=== PATIENT | male | born 1960 | race Caucasian/White ===

== ENCOUNTER 2021-09-04 09:54 | Day surgery (SDC) | payer BC ==
--- NOTE | 2021-09-04 09:10 | HP ---
DATE OF SURGERY: 09/04/2021 HISTORY OF PRESENT ILLNESS: The patient is a 60-year-old with no bloody stools, no change in bowel movements and no pain. Family history negative for colon cancer, negative for stomach or esophageal cancer. Anemia and hemoccult positive. He needs EGD and colonoscopy for further evaluation to evaluate for polyps, neoplasia, ulcer disease, gastritis or other etiology. PAST MEDICAL HISTORY: Hypertension, reflux, hypothyroidism. PAST SURGICAL HISTORY: Sinus surgery in the past. MEDICATIONS: Avapro, propranolol, Synthroid, omeprazole, vitamin B12 injection, tramadol, Toradol. ALLERGIES: IODINE. OCEAN FISH. FAMILY HISTORY: Negative for colon, esophagus or stomach cancer. SOCIAL HISTORY: No smoking or alcohol abuse. REVIEW OF SYSTEMS: Fourteen systems reviewed. No chest pain or palpitations. Other systems negative or noncontributory as above and per preadmission questionnaire. PHYSICAL EXAMINATION: GENERAL: No acute distress. HEENT: Sclerae nonicteric. NECK: No JVD. CHEST: Equal excursion, nonlabored breathing. CVS: Regular rate and rhythm. ABDOMEN: Soft. No peritoneal signs. EXTREMITIES: No significant edema. NEURO: Alert, oriented, moving extremities symmetrically. RECTAL: Deferred timed to endoscopy exam. PSYCH: Appropriate mood and affect. IMPRESSION: Anemia, hemoccult positive stool. He is in need of EGD and colonoscopy, will proceed as an outpatient. Risks of bleeding or infection, risk of bowel injury or perforation possibly requiring open procedure, risk of missed or nondiagnosis or incomplete exam possibly requiring barium enema, other studies or procedures. General risk of anesthesia or sedation. Risk of bowel prep but not limited to, consent obtained. Will proceed with EGD and colonoscopy as an outpatient.
[~2021-09-04 09:54] MED LIST: Lactated Ringers 1,000 ML IV SCH
[2021-09-04] MEDS ORDERED: Lactated Ringers 1,000 ML IV ONE (10:00)
[2021-09-04] MEDS ORDERED: Xylocaine-Mpf 2% 5 Ml Vial ONE (12:34)
[2021-09-04] MEDS ORDERED: DIPRIVAN 200 MG/20 ML IV ONE ×2 (12:34→12:57)
[2021-09-04] MEDS ORDERED: Versed 2 MG/2 ML Injection ONE (12:35)
[2021-09-04 14:16] VITALS: BP 137/77; PULSE 69; O2SAT 97
--- NOTE | 2021-09-05 09:59 | OP ---
SURGERY DATE/TIME: 09/04/2021 1237 PREOPERATIVE DIAGNOSES: 1) History of anemia. 2) History of hemoccult positive stool. 3) Need for upper and lower endoscopy. POSTOPERATIVE DIAGNOSES: 1) ASA Class II. 2) Mild to moderate gastritis. 3) Tiny, slight hiatal hernia. 4) Fair bowel prep. 5) Small early cecal polyp versus hyperplastic lesion. 6) Small diverticulitis throughout the colon. PROCEDURES: 1) EGD with cold biopsy of antrum to evaluate for Helicobacter pylori and for path. 2) Colonoscopy to cecum. 3) Hot biopsy polypectomy small, early cecal polyp versus hyperplastic lesion at the appendiceal orifice. SURGEON: Dr. Neto Avalos. ANESTHESIA: MAC. ESTIMATED BLOOD LOSS: Minimal. INDICATIONS: As noted above. Risks and benefits explained in detail and not limited to and consent obtained. DESCRIPTION OF PROCEDURE AND FINDINGS: The patient is taken to the operating room. MAC anesthesia introduced. After official time out and no disagreement with planned procedure, bite block positioned. Video gastroscope easily passed down the esophagus through the patent pylorus to the third portion of the duodenum. First, second and third portion of duodenum grossly unremarkable. No signs of any obvious ulcers or any signs of any active bleeding. The scope pulled back into antrum. He did have some streaking of some mild to moderate gastritis. Cold biopsy taken to evaluate for Helicobacter pylori. There were no signs of any ulcer. No signs of any tushar telangiectasia. On retroflex, there is a slight weakness of the hiatus, maybe a very tiny or slight hiatal hernia. The scope was straightened. Again, no signs of any obvious ulcers or masses in the stomach. Scope pulled back. Gastroesophageal junction about 40 cm. Z-line was crisp. Esophageal mucosa grossly unremarkable other than a little bit of gastritis there is no major source of any significant source of anemia. The scope is withdrawn. Patient tolerated the procedure well. Attention was then turned to colonoscopy. Digital rectal exam did not reveal any rectal masses. There were some small internal hemorrhoids. Video colonoscope inserted and passed up through the tortuous sigmoid, descending, transverse colon and ascending colon around to the cecum. Appendiceal orifice and valve well visualized and photo documented. Prep overall was fair. His ASA Class was II. The scope was carefully withdrawn over the next eight minutes. He had a few small diverticula scattered throughout the colon. There was a small polyp in the appendiceal orifice area about 2 mm in size removed with hot biopsy forceps. Whether this is early polyp versus hyperplastic lesion was removed. Good hemostasis noted. Otherwise the scope was slowly and carefully withdrawn over the next eight minutes checking the colon another few scattered diverticula and fair bowel prep with a little bit of liquidy stool. There were no signs of any large polyps, masses or obstructing lesions. He had minimal internal hemorrhoids. The scope is withdrawn. The patient tolerated the procedure well. There was no family available to discuss the findings with at this time. I will see him back in the office in the next week or two to discuss the results.
== END 2021-09-04 14:10 | disposition home or self-care (01) ==
LOC: SDC 09:54
PROVIDERS: ATTEND Surgery
DX: Z09 Encounter for follow-up examination after completed treatment for conditions other than malignant neoplasm (principal); Z86.2 Personal history of diseases of the blood and blood-forming organs and certain disorders involving the immune mechanism; R19.5 Other fecal abnormalities; K29.70 Gastritis, unspecified, without bleeding; K44.9 Diaphragmatic hernia without obstruction or gangrene; K63.5 Polyp of colon; K57.92 Diverticulitis of intestine, part unspecified, without perforation or abscess without bleeding; K64.8 Other hemorrhoids
CPT/HCPCS: J2250; J2704

== ENCOUNTER 2024-08-31 08:30 | Day surgery (SDC) | payer MEDICARE, BC ==
--- NOTE | 2024-08-31 07:21 | HP ---
HISTORY AND PHYSICAL HISTORY OF PRESENT ILLNESS: Patient had positive FIT test. No gross bloody stools. Last colonoscopy was 5 years ago. No bloody stools. No change in bowel habits. No new pain. Family history negative for colon cancer. PAST MEDICAL HISTORY: Hypertension, reflux, BPH, headaches, hypothyroidism. HOME MEDICATIONS: Tamsulosin, propranolol, omeprazole, hydrocodone, levothyroxine, Emgality, vitamin D3. ALLERGIES: Iodine. PAST SURGICAL HISTORY: Had sinus surgery in the past, had colonoscopy in the past. SOCIAL HISTORY: No smoking or alcohol abuse. FAMILY HISTORY: History of [place]. REVIEW OF SYSTEMS: Twelve systems reviewed. No chest pain or palpitations. Other systems negative or noncontributory as above and per preadmission questionnaire. PHYSICAL EXAMINATION: GENERAL: Height 5 feet 8 inches. BMI 33.45. No acute distress. HEENT: Sclerae anicteric. Extraocular movements are intact. NECK: No JVD. CARDIOVASCULAR: Regular rate and rhythm. RESPIRATORY: Equal excursion. Nonlabored breathing. ABDOMEN: Soft, nontender. SKIN: Dry. EXTREMITIES: No cyanosis or edema. NEUROLOGIC: Alert and oriented. Moving all extremities symmetrically. PSYCHIATRIC: Appropriate mood and affect. RECTAL: Deferred until time of endoscopy. IMPRESSION: Positive FIT test. Needs colonoscopy. Shown the risk sheet, explained the procedure in detail, not limited to bleeding, infection, risk of bowel injury or perforation possibly requiring open procedure, risk of missed or nondiagnosis or incomplete exam possibly requiring other procedure or referral, risk of anesthesia or sedation, risk of bowel prep but not limited to. Will proceed with outpatient colonoscopy under MAC anesthesia. Otherwise, continue medications for BPH, reflux, thyroid, headaches, and hypertension.
[2024-08-31] MEDS: Lactated Ringers 1,000 ML IV SCH (08:31)
[2024-08-31] MEDS ORDERED: Xylocaine-Mpf 2% 5 Ml Vial ONE (10:32)
[2024-08-31] MEDS ORDERED: propofoL IV ONE (10:33)
[2024-08-31] MEDS ORDERED: ROBINUL ONE (10:39)
[2024-08-31] MEDS ORDERED: Ephedrine Sulfate 50 MG/ML ONE (10:43)
[2024-08-31 11:25] VITALS: O2SAT 96
[2024-08-31 11:39] VITALS: BP 129/85; PULSE 57; RESP 18; TEMP 97.1
--- NOTE | 2024-09-01 09:54 | OP ---
SURGERY DATE/TIME: 08/31/2024 [id number] PREOPERATIVE DIAGNOSES: 1) History of positive fecal immunochemical test (FIT). 2) Need for colonoscopy. POSTOPERATIVE DIAGNOSES: 1) Transverse colon polyp. 2) Diverticulosis. 3) Fair bowel prep. 4) ASA class 2. 5) Withdrawal time approximately 8 minutes. PROCEDURES: 1) Colonoscopy to cecum. 2) Hot biopsy piecemeal polypectomy transverse colon polyp. SURGEON: Alex Avalos MD ANESTHESIA: MAC. ESTIMATED BLOOD LOSS: Minimal. INDICATIONS: Consent was obtained. DESCRIPTION OF PROCEDURE AND FINDINGS: The patient was taken to the endoscopy room. MAC anesthesia was induced. After official time-out and no disagreement with planned procedure, digital rectal exam did not reveal any rectal masses or any polyps. Videocolonoscope was inserted and passed up through the slightly tortuous sigmoid, descending, transverse, ascending colon around to the cecum. With external pressure, I was able to reach the cecum and ileocecal valve. Appendiceal orifice and ileocecal valve photo documented. Prep overall was fair. A little bit of liquidy, semi-solid stool throughout the colon that was suctioned and irrigated clear, just slightly limiting the exam for small lesions. The scope was carefully withdrawn over the next 8 minutes. There was a 3 mm polyp in the transverse colon. It was removed with hot biopsy polypectomy in piecemeal fashion. Otherwise, he had some diverticulosis in the left colon. There were no signs of any large polyps, masses, or obstructing lesions. The patient tolerated the procedure well. Findings discussed with his out in the waiting area.
== END 2024-08-31 11:46 | disposition home or self-care (01) ==
LOC: SDC 08:30
PROVIDERS: ATTEND Surgery
DX: D12.3 Benign neoplasm of transverse colon (principal); R19.5 Other fecal abnormalities; K57.30 Diverticulosis of large intestine without perforation or abscess without bleeding
CPT/HCPCS: J2704

== ENCOUNTER 2025-04-13 05:54 | Day surgery (SDC) | payer MEDICARE, BC ==
[2025-04-13] MEDS ORDERED: NEURONTIN ONE (06:11)
[2025-04-13] MEDS ORDERED: TYLENOL EXTRA STRENGTH 500 MG ONE (06:11)
[2025-04-13] MEDS ORDERED: celeBREX 100 MG ONE (06:11)
[2025-04-13] MEDS ORDERED: Decadron 4 MG ONE (06:11)
[2025-04-13] MEDS ORDERED: Lactated Ringers 1,000 ML IV ONE (06:11)
[2025-04-13] MEDS ORDERED: CEFAZOLIN SODIUM ONE (06:15)
[2025-04-13] MEDS: celeBREX 100 MG PO ONE (06:21)
[2025-04-13] MEDS: NEURONTIN PO ONE (06:21)
[2025-04-13] MEDS: Decadron 4 MG PO ONE (06:21)
[2025-04-13] MEDS: TYLENOL EXTRA STRENGTH 500 MG PO ONE (06:21)
[2025-04-13 06:38] LABS: Hematocrit 39.4 % (40.1-51.0); Hemoglobin 13.0 g/dL (13.7-17.5); Mean Corpuscular Hemoglobin 29.5 pg (25.7-32.2); Mean Corpuscular Hgb Concent. 33.0 g/dL (32.3-36.5); Platelet Count 265 x10^3/uL (163-337); Red Blood Count 4.41 x10^6/uL (4.63-6.08); White Blood Count 6.7 x10^3/uL (4.23-9.07)
[2025-04-13] MEDS: Lactated Ringers 1,000 ML IV SCH (06:39)
[2025-04-13 06:52] LABS: Calcium 9.6 mg/dL (8.4-10.2); Carbon Dioxide 26.0 mmol/L (22-30); Creatinine 1 0.93 mg/dL (0.66-1.25); EST GLOMERULAR FILTRATION RATE 90.6 ML/MIN; Glucose 101.0 mg/dL (74-106); Potassium 3.9 mmol/L (3.5-5.1); SGOT/AST 26.0 U/L (17-59); SGPT/ALT 21.0 U/L (0-50); Total Protein 7.9 g/dL (6.3-8.2)
[2025-04-13] MEDS ORDERED: EXPAREL 133 MG/10 ML VIAL IJ ONE (06:52)
[2025-04-13] MEDS ORDERED: Marcaine Mpf 0.5% Vial 30 Ml ONE (06:52)
[2025-04-13] MEDS ORDERED: SUBLIMAZE 100 MCG/2 ML ONE (06:59)
[2025-04-13] MEDS ORDERED: Versed 2 MG/2 ML Injection ONE (06:59)
[2025-04-13] MEDS ORDERED: propofoL IV ONE (06:59)
[2025-04-13] MEDS ORDERED: Xylocaine-Mpf 2% 5 Ml Vial ONE (07:00)
[2025-04-13] MEDS ORDERED: TORAdol 30 mg Injection ONE ×2 (07:01→10:12)
[2025-04-13] MEDS ORDERED: Zofran 4 MG/2 ML VIAL ONE (07:01)
[2025-04-13] MEDS ORDERED: PHENYLEPHRINE HCL ONE (08:44)
[2025-04-13 10:30] VITALS: RESP 18
[2025-04-13 10:38] VITALS: BP 128/93; PULSE 67; TEMP 96.2; O2SAT 100
--- NOTE | 2025-04-13 12:59 | XRAY ---
Indication: Right 1st MTP arthrodesis and 2nd toe hammertoe with Meri osteotomy. Intraoperative fluoroscopy provided for 1 minute 22 seconds. 22 digital spot images submitted for interpretation ultimately demonstrates 1st MTP arthrodesis, 2nd metatarsal head Meri osteotomy, and fusion 2nd toe all with intact hardware. Correlate with intraoperative findings/report.
--- NOTE | 2025-04-13 17:35 | XRAY ---
One minute and 22 seconds of fluoroscopy was used in surgery for a right 1st MTP arthrodesis and 2nd toe hammertoe with Meri osteotomy.
--- NOTE | 2025-04-14 10:32 | OP ---
SURGERY DATE/TIME: 04/13/2025 [id number] PREOPERATIVE DIAGNOSES: 1) Right foot pain. 2) Right hallux limitus. 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 4) Hammertoe. 5) Deformity of metatarsal. POSTOPERATIVE DIAGNOSES: 1) Right foot pain. 2) Right hallux limitus. 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 4) Hammertoe. 5) Deformity of metatarsal. 6) Tophaceous gout. PROCEDURE: 1) First metatarsophalangeal joint arthrodesis. 2) Meri osteotomy second metatarsal. 3) Hammertoe correction with arthrodesis of distal and proximal interphalangeal joints. SURGEON: Severino Fairchild DPM. [facility]SL INSTRUCTOR: SHARI Graff. ANESTHESIA: General plus popliteal and saphenous blocks. See Anesthesia report for details. HEMOSTASIS: Thigh tourniquet set to 300 mmHg for a total of 46 total tourniquet minutes. ESTIMATED BLOOD LOSS: Minimal. INJECTABLES: See Anesthesia report for details. 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 Duenas from [facility], who no longer does surgery at this time and was referred to my service for surgical intervention to the first metatarsophalangeal joint. He has diagnosed him with osteoarthritis of the first MPJ. He has failed conservative treatments at this time and wishes to proceed with activities such as golf and walking on uneven terrain without pain. From that standpoint, the patient did have a significant amount of concern with pain associated with the first metatarsophalangeal joint. He also did have some complaints of the contracture of the 2nd digit which was further progressing as time has gone on. He wished to address both of these issues. The patient has been made aware of all risks, complications, and benefits of surgical intervention at this time including, but not limited to, infection, hematoma, seroma, possibility of delayed wound healing, non-wound healing, and possible need for further surgical intervention at a later date. No guarantees were provided as to the outcome of surgical intervention. Plenty of time was allowed for the patient to ask questions, which were answered to his and his 's apparent satisfaction. It is at this time we decided to proceed. DESCRIPTION OF PROCEDURE AND FINDINGS: The patient was brought into the PACU prior to the procedure and provided a popliteal and saphenous block with Exparel. See Anesthesia report for details. Following this, the patient was brought into the operating room and placed on the operating room table in the supine position and then general anesthesia was administered. Once the anesthesia was administered, a well-padded thigh tourniquet was applied to the patient's right lower extremity and the tourniquet was set to 300 mmHg. The right lower extremity was prepped and draped in the typical sterile fashion and lowered onto the surgical field. At this time, attention was directed to the first metatarsophalangeal joint where there was a significant amount of hallux rigidus as well as a hallux valgus deformity noted. From that standpoint, a linear incision was made after exsanguinating the foot utilizing an Esmarch, and the tourniquet being inflated to 300 mmHg. Attention was directed just medial to the extensor hallucis longus where a linear incision was made carefully dissecting down to the level of the capsule of the first metatarsophalangeal joint. Any neurovascular structures that were encountered were either retracted or Bovied or remained outside the surgical site for the remainder of the procedure. The capsule of the first metatarsophalangeal joint was dissected, showing a small amount of tophaceous gout as well as erosion of the central portion and the surrounding portions of the metatarsal head as well as the proximal phalangeal base. Once this was inspected and images were taken, cup and conical reamers were utilized to remove any remaining cartilage from the surface of the joint. Once this was removed, copious amounts of sterile saline were utilized to flush the surgical site. A 2 mm drill was then utilized to fenestrate the joint surfaces as well as fish scaling, which increased the surface area. A dorsal locking plate was introduced. Once the position was assessed between these two, distal screws were inserted into the plate. An interfragmentary wire was placed for positioning and this was checked under fluoroscopic guidance. Once this occurred, the remaining drill holes between the interfragmentary and the center screw were then utilized in alternating fashion to get as much compression between the two bone surfaces. Once this was achieved and position was deemed to be accurate, the remaining holes were filled utilizing a combination of locking and non-locking screws. Once position was assessed and deemed to be adequate, a linear incision was made over the second metatarsophalangeal joint where this was carried down to the extensor digitorum longus where a Z-lengthening tenotomy was performed. This was retracted utilizing 2 mosquito hemostats. Once these were out of the field, a linear incision was made through the capsule with a J stroke on either side. An 18 mm sagittal saw was then utilized to perform the Meri osteotomy perpendicular to the weightbearing surface. This was shifted proximally and then a 14 mm partially threaded headed screw was introduced in a proximal dorsal to plantar distal orientation making sure not to be bicortical, and capturing the Meri osteotomy through the metatarsal head, gaining excellent compression. Once this was performed, a linear incision was carried out over the dorsal aspect of the second proximal interphalangeal joint where an arthrotomy was performed and then a K-wire was anterior graded out of the tip of the middle phalanx and distal phalanx and then retrograded through the proximal phalanx. Once this was performed, and position was deemed to be adequate, a 2.5 x 40 VPC screw was then introduced from the distal tip of the digit and into the base of the proximal phalanx. Once this was deemed to be in adequate position and the loaded position utilizing a footplate, there was significant improvement of the dorsiflexion of the 2nd digit, as well as 2nd digit alignment, and the 1st and 2nd digit were parallel, this was assessed under fluoroscopic guidance. Copious amounts of sterile saline were utilized to flush the surgical sites. 4-0 Monocryl was utilized to coapt the subcutaneous edges in the capsule in a simple interrupted buried-type fashion and then 3-0 nylon was utilized in a horizontal mattress-type fashion. A dressing consisting of Hibiclens, Adaptic, 4 x 4, ABD, and Christopher was applied to the patient's right lower extremity. The patient was then reversed from anesthesia and returned to the postoperative anesthesia care unit with vital signs stable and vascular status intact. The patient handled the anesthesia as well as the procedure without significant complication. Postoperative orders as indicated in the patient's discharge chart.
== END 2025-04-13 11:01 | disposition home or self-care (01) ==
LOC: SDC 05:54
PROVIDERS: ATTEND Podiatrist Foot & Ankle Surgery
DX: M19.071 Primary osteoarthritis, right ankle and foot (principal); M20.41 Other hammer toe(s) (acquired), right foot; M20.5X1 Other deformities of toe(s) (acquired), right foot; M79.671 Pain in right foot; M21.6X1 Other acquired deformities of right foot
CPT/HCPCS: 01480; 28285; 28308; 28750; 36415; 64447; 73630; 76000; 76942; 80053; 85027; C1713